=== PATIENT | female | born 1990 | race Caucasian/White ===

== ENCOUNTER 2016-09-11 09:44 | Emergency (ER) | payer MEDICAID ==
[~2016-09-11] VITALS: Ht 160 cm; Wt 49.5 kg
[2016-09-11] MEDS ORDERED: ONDANSETRON 2MG/ML, 2ML IVPush ONE (10:30)
[2016-09-11] MEDS ORDERED: SODIUM CHLORIDE 0.9% 1,000ML IVBOLUS ONE (10:30)
[2016-09-11] MEDS ORDERED: FAMOTIDINE 20 MG/2 ML IVP ONE (10:30)
[2016-09-11] MEDS ORDERED: SODIUM CHLORIDE FLUSH 10ML SYR IVF ONE (10:30)
[2016-09-11] MEDS ORDERED: FAMOTIDINE 20 MG/2 ML ONE (10:34)
[2016-09-11] MEDS ORDERED: ONDANSETRON 2MG/ML, 2ML ONE (10:34)
[2016-09-11 10:58] LABS: BLOOD UREA NITROGEN 13 mg/dL (7-18)
[2016-09-11 11:03] LABS: ASPARTATE AMINO TRANSFERASE 6 U/L (15-37)
[2016-09-11 11:12] LABS: HCG UR OBC PASS
[2016-09-11 12:00] VITALS: BP 114/79
== END 2016-09-11 12:39 | disposition home or self-care (01) ==
LOC: ED 10:24
DX: R11.2 Nausea with vomiting, unspecified (principal); R19.7 Diarrhea, unspecified; R17 Unspecified jaundice
CPT/HCPCS: 36415; 80053; 81001; 81025; 83690; 85025; 87086; 96374; 96375; 99284; J2405; J7030; S0028

== ENCOUNTER 2017-09-07 12:30 | Emergency (ER) | payer MEDICAID ==
[~2017-09-07] VITALS: Ht 160 cm; Wt 54.8 kg
[2017-09-07 13:19] LABS: BASOPHILS # (AUTO) 0.04 x10^3/uL (0-0.1); BASOPHILS % (AUTO) 1 % (0-1); EOSINOPHILS # (AUTO) 0.02 x10^3/uL (0-0.4); EOSINOPHILS % (AUTO) 0 % (1-7); LYMPHOCYTES # (AUTO) 1.39 x10^3/uL (1-3.4); LYMPHOCYTES % (AUTO) 17 % (22-44); MD NO; MEAN CORPUSCULAR HEMOGLOBIN 29.5 pg (27.0-34.8); MEAN CORPUSCULAR HGB CONC 32.8 g/dL (32.4-35.8); MEAN CORPUSCULAR VOLUME 89.9 fL (80-100); MEAN PLATELET VOLUME 8.8 fL (7.4-10.4); MONOCYTES # (AUTO) 0.55 x10^3/uL (0.2-0.8); MONOCYTES % (AUTO) 7 % (2-9); NEUTROPHILS # (AUTO) 6.44 x10^3/uL (1.8-6.8); NEUTROPHILS % (AUTO) 76 % (42-75); PLATELET COUNT 246 x10^3/uL (130-400); RED BLOOD COUNT 4.32 x10^6/uL (3.82-5.3); RED CELL DISTRIBUTION WIDTH 13.5 % (9.6-15.2)
[2017-09-07 13:33] LABS: CHLORIDE 106 mmol/L (98-107)
[2017-09-07 13:47] LABS: ALANINE AMINOTRANSFERASE 19 U/L (12-78); ALBUMIN 3.5 g/dL (3.4-5.0); ALKALINE PHOSPHATASE 50 U/L (45-117); ANION GAP 9 mmol/L (5-15); BILIRUBIN,TOTAL 0.8 mg/dL (0.2-1.0); CALCIUM 9.2 mg/dL (8.5-10.1); CREATININE 0.68 mg/dL (0.55-1.02); TOTAL PROTEIN 7.4 g/dL (6.4-8.2)
[2017-09-07 14:48] LABS: MICROSCOPIC AUTO
[2017-09-07 14:52] LABS: PROTHROMBIN TIME 10.3 Seconds (9.6-11.5)
[2017-09-07 14:52] LABS: CULTURE INDICATED? YES
[2017-09-07 15:52] VITALS: BP 94/52
== END 2017-09-07 16:04 | disposition home or self-care (01) ==
LOC: ED 15:12
DX: O26.891 Other specified pregnancy related conditions, first trimester (principal); R10.32 Left lower quadrant pain; O21.9 Vomiting of pregnancy, unspecified; Z3A.12 12 weeks gestation of pregnancy
CPT/HCPCS: 36415; 76801; 80053; 81001; 83690; 85025; 85610; 85730; 87086; 99285

== ENCOUNTER 2019-03-19 03:08 | Emergency (ER) | payer MEDICAID ==
[~2019-03-19] VITALS: Ht 160 cm; Wt 61.2 kg
[2019-03-19] MEDS ORDERED: KETOROLAC 30 MG/1 ML IVPush ONE (04:00)
[2019-03-19] MEDS ORDERED: ALBUTEROL/IPRATROPIUM 2.5MG/0.5MG, 3 ML NPPB ONE (04:00)
[2019-03-19] MEDS ORDERED: ACETAMINOPHEN 325 MG TABLET PO ONE (04:00)
[2019-03-19] MEDS ORDERED: SODIUM CHLORIDE 0.9% 1,000ML IVBOLUS ONE ×2 (04:00→06:00)
[2019-03-19] MEDS ORDERED: ALBUTEROL/IPRATROPIUM 2.5MG/0.5MG, 3 ML ONE (04:13)
[2019-03-19 04:29] LABS: BASOPHILS # (AUTO) 0.01 x10^3/uL (0-0.1); BASOPHILS % (AUTO) 0 % (0-1); EOSINOPHILS # (AUTO) 0.01 x10^3/uL (0-0.4); EOSINOPHILS % (AUTO) 0 % (1-7); LYMPHOCYTES # (AUTO) 0.58 x10^3/uL (1-3.4); LYMPHOCYTES % (AUTO) 16 % (22-44); MD NO; MEAN CORPUSCULAR HEMOGLOBIN 30.1 pg (27.0-34.8); MEAN CORPUSCULAR VOLUME 91.5 fL (80-100); MEAN PLATELET VOLUME 9.3 fL (7.4-10.4); MONOCYTES # (AUTO) 0.27 x10^3/uL (0.2-0.8); MONOCYTES % (AUTO) 8 % (2-9); NEUTROPHILS # (AUTO) 2.71 x10^3/uL (1.8-6.8); NEUTROPHILS % (AUTO) 76 % (42-75); PLATELET COUNT 142 x10^3/uL (130-400); RED BLOOD COUNT 3.57 x10^6/uL (3.82-5.3); RED CELL DISTRIBUTION WIDTH 13.3 % (9.6-15.2)
[2019-03-19 04:30] LABS: ALBUMIN 3.3 g/dL (3.4-5.0); ANION GAP 6 mmol/L (5-15); CALCIUM 7.3 mg/dL (8.5-10.1); CHLORIDE 117 mmol/L (98-107); CREATININE 0.64 mg/dL (0.55-1.02)
--- NOTE | 2019-03-19 04:38 | NUR ---
Patient into room, iv already placed. Patient assessed by provider, orders placed for respiratory treatment. Post respiratory treatment RN was informed by biomedical engineering technician that patient's heart rate was elevated. RN arrove at bedside, patient reports feeling chills, chills are apparent with patient shaking, monitor reading heart rate, despite chills sinus tachycardia is apparent. No signs of svt, patient reports no history of palpatations. EKG collected provider aware, no new orders received only instructions to continue with IV bolus and antiinflammatories.
[2019-03-19] MEDS ORDERED: KETOROLAC 30 MG/1 ML ONE (04:45)
[2019-03-19] MEDS ORDERED: ACETAMINOPHEN 500 MG TABLET ONE (05:03)
--- NOTE | 2019-03-19 05:48 | NUR ---
provider returned to patient's room, patients heart rate still elevated, blood pressure stable. Informed of need for further fluids and imaging. patient agreeable. RN returned and administered second round of fluids. Waiting for CT.
[2019-03-19] MEDS ORDERED: OMNIPAQUE 350 MG/ML, 100ML BOTTLE ONE (06:01)
[2019-03-19 06:56] VITALS: BP 102/62
--- NOTE | 2019-03-19 06:56 | NUR ---
REPORT RECEIVED FROM JENNIFFER RN, ASSUMED CARE OF PT. PT RESTING ON GURNEY AT THIS TIME, DENIES NEEDS AT THIS TIME
== END 2019-03-19 07:32 | disposition home or self-care (01) ==
LOC: ED 05:15
DX: R07.89 Other chest pain (principal); B34.9 Viral infection, unspecified
CPT/HCPCS: 36415; 71045; 71275; 80048; 82040; 85025; 93005; 94640; 96374; 99284; J1885; J7030; Q9967

== ENCOUNTER 2019-05-29 08:16 | Emergency (ER) | payer MEDICAID ==
[~2019-05-29] VITALS: Ht 160 cm; Wt 55.3 kg
--- NOTE | 2019-05-29 08:23 | NUR ---
JIGGER OPERATOR: THIS RN WITH JONATHON DURING EKG PROCEDURE. PT TOLERATED WITH NO COMPLICATIONS.
--- NOTE | 2019-05-29 08:58 | NUR ---
Pt to room from lobby.
--- NOTE | 2019-05-29 09:09 | NUR ---
PT. TO ED WITH C/O PALPITAIONS SINCE SATURDAY. STATES LAST NIGHT HAD MILD PAIN IN HER CHEST THAT RADIATED TO LEFT ARM AND JAW. DENIES CP AT THIS TIME BUT STATES DULL PAIN TO LEFT ARM STILL. DENIES ANY INJURY. DENIES ANY PAST MEDICAL HISTORY. EKG WAS DONE IN TRIAGE AND PRESENTED TO ERP. CONTINUOUS PULSE OX, B/P, AND HEART MONITORS APPLIED. DR. SALINAS IN TO EVAL PT. AND DISCUSS POC. CALL LIGHT IN REACH. BLANKET PROVIDED. ALL SAFETY MEASURES OBSERVED.
[2019-05-29 09:41] LABS: BASOPHILS # (AUTO) 0.01 x10^3/uL (0-0.1); BASOPHILS % (AUTO) 0 % (0-1); EOSINOPHILS % (AUTO) 0 % (1-7); LYMPHOCYTES # (AUTO) 0.88 x10^3/uL (1-3.4); LYMPHOCYTES % (AUTO) 20 % (22-44); MD NO; MEAN CORPUSCULAR HGB CONC 33.7 g/dL (32.4-35.8); MEAN CORPUSCULAR VOLUME 89.2 fL (80-100); MEAN PLATELET VOLUME 9.3 fL (7.4-10.4); MONOCYTES # (AUTO) 0.29 x10^3/uL (0.2-0.8); MONOCYTES % (AUTO) 7 % (2-9); NEUTROPHILS # (AUTO) 3.14 x10^3/uL (1.8-6.8); NEUTROPHILS % (AUTO) 73 % (42-75); PLATELET COUNT 187 x10^3/uL (130-400); RED BLOOD COUNT 4.46 x10^6/uL (3.82-5.3); RED CELL DISTRIBUTION WIDTH 13.3 % (9.6-15.2)
--- NOTE | 2019-05-29 09:49 | NUR ---
REPORT TO RUDY KIM TO ASSUME CARE OF PT. AT THIS TIME.
--- NOTE | 2019-05-29 09:50 | NUR ---
REPORT TAKEN FROM RUDY SMITH. ASSUMED CARE
[2019-05-29 09:51] LABS: ALBUMIN 4.2 g/dL (3.4-5.0); ANION GAP 6 mmol/L (5-15); CALCIUM 8.6 mg/dL (8.5-10.1); CHLORIDE 111 mmol/L (98-107); CREATININE 0.94 mg/dL (0.55-1.02)
[2019-05-29 09:54] LABS: TROPONIN I < 0.015 ng/mL (0.000-0.045)
[2019-05-29 10:05] VITALS: BP 106/64
--- NOTE | 2019-05-29 10:06 | NUR ---
PT RESTING IN GURNEY. DENIES ANY CHEST PAIN. UP FOR RECHECK AT THIS TIME
== END 2019-05-29 10:43 | disposition home or self-care (01) ==
LOC: ED 10:25
DX: R07.89 Other chest pain (principal); R00.2 Palpitations; H10.021 Other mucopurulent conjunctivitis, right eye
CPT/HCPCS: 36415; 71046; 80048; 82040; 84484; 85025; 85379; 93005; 99285